=== PATIENT | female | born 1955 | race Caucasian/White ===

== ENCOUNTER → 2024-11-13 | Outpatient (CLI) | payer MEDICARE ==
--- NOTE | 2024-11-24 10:30 | BMR ---
EXAM DATE: 11/14/2024 EXAM DESCRIPTION: MRI-Breast Bilat (W/WO Contrast) INDICATION: Diagnostic MRI cancer of unknown primary. COMPARISON: Comparison is made with relevant prior imaging in PACS. CONTRAST: 10 cc of Gadavist TECHNIQUE: Multiplanar MRI imaging of both breasts was performed with a dedicated breast coil, before and after intravenous administration of gadolinium contrast, using the standard breast mass protocol. Computer-aided detection was used to aid in interpretation. FINDINGS: General breast composition: There are scattered areas of fibroglandular tissue Background parenchymal enhancement: Minimal FINDINGS: Right Breast: Review of the dynamic contrast-enhanced series shows 2 similar appearing oval circumscribed T2 hyperintense, T1 hypointense with irregular enhancement in the central outer breast at far posterior depth abutting the chest wall. The larger mass measures 1.8 x 1.7 x 2.2 cm (best seen on series 301:72, 801:184). No additional rapidly enhancing masses, suspicious enhancement patterns or other abnormalities. No axillary lymphadenopathy Left Breast: Review of the dynamic contrast-enhanced series shows a oval circumscribed predominately T2 hyperintense ,T1 hypointense, irregular enhancing mass in the left central breast at far posterior depth measuring 2.4 x 2.1 x 4.7 cm (704:427, 801:52). This is abuts the chest wall and was too posterior to be seen on recent mammogram. No additional enhancing masses, suspicious enhancement patterns or other abnormalities. No axillary lymphadenopathy. IMPRESSION: There are bilateral irregular enhancing masses abutting the chest wall at far posterior depth, largest measuring 4.7 cm on the left. These are too far posterior to be seen on recent mammogram. Given symmetry in both breasts, this may represent metastasis, lymphadenopathy, however other etiologies such as vascular malformations may have a similar appearance. Recommend targeted ultrasound for further evaluation with management based on sonographic findings. If no sonographic correlate is found a CT chest with contrast is recommended for further evaluation. BI-RADS Category4- Suspicious MTDD
== END | disposition home or self-care (01) ==
LOC: RADMRIMAIN 12:14
PROVIDERS: ATTEND Internal Medicine Hematology & Oncology
DX: C80.0 Disseminated malignant neoplasm, unspecified (principal); M12.9 Arthropathy, unspecified; R22.2 Localized swelling, mass and lump, trunk
CPT/HCPCS: 77049; A9585